=== PATIENT | female | born 1970 | race Caucasian/White ===

== ENCOUNTER 2022-08-16 20:30 | Emergency (ER) | payer MEDICAID, SELFPAY ==
[2022-08-16 20:31] VITALS: BP 125/54; PULSE 108; RESP 96; TEMP 36.7; O2SAT 96
--- NOTE | 2022-08-16 21:22 | RAD_ITS ---
EXAM: XR CERVICAL SPINE, 4 OR 5 VIEWS CLINICAL INDICATION: Injury/Pain TECHNIQUE: Frontal, lateral and bilateral oblique views of the cervical spine. This report was created using [employer] Original [employer] report generation technology. COMPARISON: None. FINDINGS: VERTEBRAE: There are flowing anterior osteophytes from C3 through C6. Preserved vertebral body height. No acute fracture. No spondylolisthesis. Preservation of the normal cervical lordosis. No significant facet arthropathy. DISC SPACES: Unremarkable. Disc spaces are maintained. SOFT TISSUES: Unremarkable. No prevertebral soft tissue widening. LUNG APICES: Clear. RAD/Cerv Spine 2 or 3 Views IMPRESSION: No acute osseous abnormalities. There are anterior osteophytes from C3 through C6. Electronically Signed: Curtis Fontaine MD at 21:32 EST ,
[2022-08-16 21:33] LABS: Absolute Lymphocyte Count 2.25 X10^3/uL (0.83-4.51); Absolute Neutrophil Count 3.7 X10^3/uL (2.0-7.7); Basophil# 0.04 X10^3/uL; Basophil% 0.6 % (0-1); Eosinophil# 0.13 X10^3/uL; Hemoglobin 14.5 g/dL (12.0-15.0); Lymphocyte # 2.25 X10^3/ul (0.83-4.51); Lymphocyte % 34.6 % (19-41); Mean Corp Hgb Conc 32.2 g/dL (32-36); Mean Corpuscular Hgb 30.3 pg (27.0-32.0); Mean Corpuscular Volume 94.1 fL (81-99); Mean Platelet Vol. 10.9 fl (6.2-12.0); Monocyte# 0.32 X10^3/uL; Monocyte% 4.9 % (0-10); NRBC Flagged by Analyzer 0 % (0-5); Neutrophil # 3.74 X10^3/uL (2.7-7.7); Neutrophil % 57.6 % (47-70); Platelet Count 225 K/mm3 (150-450); RBC Distribution Width CV 12.2 % (11.6-14.6); RBC Distribution Width SD 42.5 fl (35.1-43.9); Red Blood Count 4.78 M/mm3 (4.2-5.4); White Blood Count 6.5 K/mm3 (4.4-11.0)
[2022-08-16 21:45] LABS: Anion Gap 12 (5-15); BUN 12 mg/dL (7-18); BUN/Creat Ratio 13.9 RATIO (10-20); Calcium,Total 9.1 mg/dL (8.5-10.1); Chloride 105 mmol/L (98-107); Creatinine, Serum 0.86 mg/dL (0.55-1.02); EST Glomerular Filtration Rate 73 mL/min (>60); Est Glom Filt Rate - Afr Amer 89 mL/min (>60); Estimated Creatinine Clearance 66.08 ml/min; Glucose 139 mg/dL (74-106); Sodium Level 140 mmol/L (136-145)
[2022-08-16 21:46] VITALS: BP 101/76; PULSE 85; RESP 19; O2SAT 93
[2022-08-16 22:00] VITALS: BP 101/55; PULSE 83; RESP 17; O2SAT 94
[2022-08-16 23:00] VITALS: RESP 20; O2SAT 98
--- NOTE | 2022-08-16 23:01 | EDS_ITS ---
HPI History of Present Illness Chief Complaint: Seizure Informant: patient and friend Onset/Context/Timing Onset: Today Context: Sudden Onset Timing: Intermittent and Lasts (Approximately 5 minutes) Quality: Shaking Location: Generalized Worsened by: Nothing Relieved by: Nothing Narrative Narrative: Patient presents with seizure that occurred today. Patient has a history of seizures. Patient was standing outside waiting for her ride to pick her up when she had a seizure. Friend was with her who witnessed the seizure. Friend states that it was generalized and shaking all over. Patient does not remember any of the events around the seizure. Patient remembers standing outside and waking up in the ambulance. Friend states that this was approximately 5 minutes in duration. Patient states she did bite the size of her tongue but denies any bleeding from her mouth. Patient denies any loss of control of her bowels or bladder. [facility] Medical History Seizures Home Medications cenobamate 200 mg tablet 200 mg PO DAILY 08/16/22 [History Last Taken Unknown] lorazepam 1 mg tablet (Ativan) 1 mg PO DAILY PRN Anxiety 08/16/22 [History Last Taken Unknown] Allergy/AdvReac Type Severity Reaction Status Date / Time diazepam [From Valium] AdvReac Chest Verified 08/16/22 20:36 tightness Surgical History no surgical history no surgical history Social History Smoking Status: Never smoker ROS ROS ED Constitutional Constitutional ED: Denies chills or fever(s) Eyes Eyes: Reports change in vision; Denies blurry vision or diplopia ENT ENT ED: Denies rhinorrhea or sore throat Cardiovascular Cardiovascular: Reports chest pain; Denies palpitations Respiratory/Chest Respiratory/Chest: Denies cough or dyspnea Gastrointestinal Gastrointestinal: Denies nausea or vomiting Genitourinary Genitourinary ED: Denies dysuria or hematuria Musculoskeletal Musculoskeletal: Denies back pain or neck pain Integumentary Denies abscess or rash Neurologic Neurologic: Denies headache(s) or weakness Allergic/Immunologic Allergic/Immunologic ED: Denies mouth swelling or urticaria EXAM Physical Exam Const Vital Signs: 08/16/22 20:31 08/16/22 21:46 08/16/22 22:00 Temperature 98.1 F Temperature Source Oral Pulse Rate 108 H 85 83 Respiratory Rate 96 H 19 H 17 Blood Pressure 125/54 H 101/76 101/55 L Blood Pressure Mean 77 84 70 Pulse Ox 96 93 94 Oxygen Delivery Method Room Air Room Air Room Air Positive well nourished and well developed General Appearance ED: well developed and NAD HEENT Reports moist mucous membranes HEENT Narrative: There is some ecchymosis along the lateral edges of the tongue bilaterally. There is no bleeding noted. Eyes PERRL and EOMs intact bilaterally Neck supple and no JVD Resp normal respiratory effort and clear to auscultation bilaterally Cardio regular rate, regular rhythm and no murmurs GI normal to inspection, nondistended, normoactive bowel sounds and non-tender Palpation: soft Extremity normal to inspection General Extremety ED: Negative for edema or tenderness General Extremity: Negative for edema Neuro oriented x3, CN's II-XII intact bilaterally and no sensory deficits noted Sensorium / Orientation: alert Motor Exam: strength 5/5 throughout Psych mental status grossly normal Skin no rashes or lesions noted MDM MDM MDM Narrative Medical decision making narrative: IV line was established. Patient was placed on cardiac and pulse oximeter monitor. Differential diagnosis includes breakthrough seizure, electrolyte abnormality, cervical strain/cervical fracture from the falls, and infection. CBC will be obtained to assess for leukocytosis and anemia. Basic metabolic profile will be obtained to assess for electrolyte abnormality and renal fu nction. X-rays of the cervical spine will be obtained to assess for cervical spine fracture or spondylolisthesis. Lab Data Attestation: I reviewed the patient's lab results. Lab results narrative: CBC was reviewed and was within normal limits. Basic metabolic profile was reviewed and was within normal limits with exception of a slightly elevated glucose of 139. Labs: Laboratory Results - last 24 hr 08/16/22 08/16/22 21:00 21:00 WBC 6.5 RBC 4.78 Hgb 14.5 Hct 45.0 MCV 94.1 MCH 30.3 MCHC 32.2 RDW Std Deviation 42.5 RDW Coeff of Lorelei 12.2 Plt Count 225 MPV 10.9 Immature Gran % (Auto) 0.300 Neut % (Auto) 57.6 Lymph % (Auto) 34.6 Mclean % (Auto) 4.9 Eos % (Auto) 2.0 Baso % (Auto) 0.6 Absolute Neuts (auto) 3.7 Absolute Lymphs (auto) 2.25 Nucleated RBC % 0 Sodium 140 Potassium 4.0 Chloride 105 Carbon Dioxide 23.0 Anion Gap 12 BUN 12 Creatinine 0.86 Estim Creat Clear Calc 66.08 Est GFR (MDRD) Af Amer 89 Est GFR (MDRD) Non-Af 73 BUN/Creatinine Ratio 13.9 Glucose 139 H Calcium 9.1 Radiography Diagnostic Testing: Clinical Impression(s) from Imaging Studies Cervical Spine X-Ray 08/16/22 21:22 IMPRESSION: No acute osseous abnormalities. There are anterior osteophytes from C3 through C6. Electronically Signed: Curtis Fontaine MD at 21:32 EST , X-rays of the cervical spine were obtained. There are 3 views. On my independent interpretation, there is no acute fracture or spondylolisthesis. There are some degenerative changes noted. Radiologist also interpreted the x- rays and agrees. Treatment and Re-Evaluation Narrative: Patient had no further seizure activity here. Patient does not take any medications for her seizures and will require obtaining levels. Patient was instructed to drink plenty of fluids. Patient was instructed to follow-up with her primary care physician and neurologist in 5 to 7 days. Patient and friend u nderstood and were agreeable with the plan. All questions were answered. Discharge Plan Triage Chief Complaint: Seizure ED Provider: Chao Piña Dx/Rx/DC Orders Clinical Impression: Breakthrough seizure, Seizure disorder Instructions: ED Seizure, Recurrent (Adult) Prescriptions: No Action lorazepam [Ativan] 1 mg Tablet 1 mg PO DAILY PRN (Reason: Anxiety) cenobamate 200 mg Tablet 200 mg PO DAILY Primary Care Provider: Care Physician,No Primary Referrals: Care Physician,No Primary [Primary Care Provider] - Doctor,Your [Non-Staff] - 3-5 Days Disposition Disposition: Home, Self Care
== END 2022-08-16 23:23 | disposition home or self-care (01) ==
PROVIDERS: Emergency Provider Emergency Medicine; Visit Provider Emergency Medicine
DX: G40.909 Epilepsy, unspecified, not intractable, without status epilepticus (principal); Z79.899 Other long term (current) drug therapy
CPT/HCPCS: 72040; 80048; 85025; 99285